=== PATIENT | male | born 1945 ===

== ENCOUNTER 2022-03-17 10:21 | Inpatient (IN) ==
[2022-03-17] MEDS ORDERED: niCARdipine INJ 25 MG in SODIUM CHLORIDE 0.9% 240 ML IV PRN (10:35)
[2022-03-17 10:51] LABS: Red Blood Count 4.79 MC/CUMM (3.8-5.5); White Blood Count 5.4 T/CUMM (4-12)
[2022-03-17 10:52] LABS: Basophils % 0.4 % (0.0-0.8); Eosinophils % 0.7 % (0.00-10.9); Hematocrit 44.5 VOL% (42.0-52.0); Hemoglobin 14.9 GM/DL (14.0-18.0); Immature Granulocytes % 0.2 %; Immature Granulocytes Absolute 0.01 #; Lymphocytes # 2.7 10*3/uL (1.4-4.0); Lymphocytes % 49.1 % (21.2-54.2); Mean Corpuscular HGB Conc 33.5 GM/DL (32-36); Mean Corpuscular Volume 92.9 FL (87-102); Mean Platelet Volume 11.2 FL (9.6-12.0); Monocytes # 0.4 10*3/uL (0.11-0.8); Monocytes % 6.6 % (1.7-12.7); Platelet Count 223 T/CUMM (130-400)
[2022-03-17 11:00] LABS: PT Patient Result 11.2 SECS (10.1-12.1); Partial Thromboplastin Time 28.5 SECS (23.7-32.9)
[2022-03-17] MEDS: SODIUM CHLORIDE 0.9% 1,000 ML IV SCH (11:00)
[2022-03-17 11:13] LABS: Lymphocytes 52 % (20-55); Platelet Estimate Adequate; Total Cells Counted 100
[2022-03-17 11:25] LABS: Bilirubin,Total 0.7 MG/DL (0.20-1.00); Osmolality,Calculated 282.5 MOS/KG (273-304); Potassium 4.5 MMOL/L (3.5-5.1); Total Protein 7.9 G/DL (6.4-8.2)
[2022-03-17] MEDS ORDERED: ONDANSETRON 4 MG/2 ML VIAL IV PRN (12:03)
[2022-03-17] MEDS ORDERED: ALUMINUM/MAGNES/SIMETH MAX STR 30 ML UDCUP PO PRN (12:03)
[2022-03-17] MEDS ORDERED: GLUCAGON 1 MG VIAL IM PRN (12:03)
[2022-03-17] MEDS ORDERED: IBUPROFEN 600 MG TABLET PO PRN (12:09)
[2022-03-17] MEDS ORDERED: amLODIPine 5 MG TABLET PO STA (12:10)
[2022-03-17] MEDS ORDERED: DEXTROSE 10% 250 ML BAG IV PRN (12:11)
[2022-03-17] MEDS ORDERED: ASPIRIN 325 MG TABLET PO STA (12:12)
[2022-03-17 12:50] LABS: Bacteria,Urine Occasional /HPF (Few); Mucus,Urine Occasional /LPF (Occasional); RBC,Urine 1 /HPF (0-4); Squamous Epithelial Cell,Urine Occasional /HPF (0-10)
[2022-03-17 12:52] LABS: Bilirubin,Urine Negative (Negative); Blood, Urine Negative (Negative); Glucose,Urine (UA) 100 mg/dL (Negative); Ketones,Urine Negative (Negative); Nitrite,Urine Negative (Negative); Protein,Urine Negative (Negative); Urine Appearance Clear (Clear); Urine Color Yellow (Yellow); Urine Urobilinogen 0.2 eU/dL (<2.0)
[2022-03-17 12:54] LABS: Barbiturates Screen,Urine Negative (Negative); Benzodiazepines Screen,Urine Negative (Negative); Cannabinoid Screen,Urine Positive (Negative); Opiate Screen,Urine Negative (Negative); Phencyclidine Screen,Urine Negative (Negative)
[2022-03-17] MEDS: ENOXAPARIN 40 MG/0.4 ML SYRINGE SUBCUT SCH (13:14)
[2022-03-17] MEDS: PANTOPRAZOLE 40 MG TABLET PO SCH (13:14)
[2022-03-17] MEDS ORDERED: cloNIDine 0.3 MG/24 HR PATCH TRANSDERM SCH (14:00)
[2022-03-17] MEDS: FUROSEMIDE 20 MG TABLET PO SCH (14:00)
[2022-03-17] MEDS ORDERED: INFLUENZA VIRUS VACCINE 0.5 ML SYRINGE IM ONE (14:39)
[2022-03-17] MEDS: INSULIN LISPRO 100 UNIT/ML SUBCUT SCH ×2 (16:15→20:22)
[2022-03-18] MEDS ORDERED: hydrALAZINE 20 MG/1 ML VIAL IV PRN (02:13)
[2022-03-18] MEDS: ALBUTEROL 2.5 MG/3 ML NEB RESP TX PRN (03:49)
[2022-03-18] MEDS: SODIUM CHLORIDE 0.9% 1,000 ML IV SCH (05:50)
[2022-03-18 06:07] LABS: Basophils % 0.6 % (0.0-0.8); Eosinophils % 0.8 % (0.00-10.9); Hematocrit 43.9 VOL% (42.0-52.0); Hemoglobin 14.7 GM/DL (14.0-18.0); Lymphocytes # 1.9 10*3/uL (1.4-4.0); Lymphocytes % 39.1 % (21.2-54.2); Mean Corpuscular HGB Conc 33.5 GM/DL (32-36); Mean Platelet Volume 11.3 FL (9.6-12.0); Monocytes # 0.4 10*3/uL (0.11-0.8); Monocytes % 8.3 % (1.7-12.7); Neutrophils % 51.2 % (38.7-73.9); Platelet Count 201 T/CUMM (130-400); Red Blood Count 4.77 MC/CUMM (3.8-5.5); Red Cell Distribution Width 12.9 % (9.3-17.3); White Blood Count 4.8 T/CUMM (4-12)
[2022-03-18 06:39] LABS: Osmolality,Calculated 282.7 MOS/KG (273-304); Potassium 3.6 MMOL/L (3.5-5.1); Thyroid Stimulating Hormone 1.3 uIU/ml (0.358-3.74)
[2022-03-18] MEDS: INSULIN LISPRO 100 UNIT/ML SUBCUT SCH ×4 (08:05→20:49)
[2022-03-18] MEDS: ASPIRIN 325 MG TABLET PO SCH (08:06)
[2022-03-18] MEDS: FUROSEMIDE 20 MG TABLET PO SCH (08:06)
[2022-03-18] MEDS: amLODIPine 10 MG TABLET PO SCH (08:07)
[2022-03-18] MEDS: PANTOPRAZOLE 40 MG TABLET PO SCH (08:10)
[2022-03-18] MEDS: ENOXAPARIN 40 MG/0.4 ML SYRINGE SUBCUT SCH (13:32)
[2022-03-19 05:30] LABS: Basophils % 0.6 % (0.0-0.8); Eosinophils # 0.1 10*3/uL (0.0-0.87); Eosinophils % 1.2 % (0.00-10.9); Hematocrit 44.4 VOL% (42.0-52.0); Immature Granulocytes % 0.4 %; Immature Granulocytes Absolute 0.02 #; Lymphocytes # 2.1 10*3/uL (1.4-4.0); Lymphocytes % 42.2 % (21.2-54.2); Mean Corpuscular HGB Conc 33.8 GM/DL (32-36); Mean Corpuscular Volume 92.1 FL (87-102); Mean Platelet Volume 11.2 FL (9.6-12.0); Monocytes # 0.5 10*3/uL (0.11-0.8); Neutrophils % 46.6 % (38.7-73.9); Platelet Count 217 T/CUMM (130-400); Red Blood Count 4.82 MC/CUMM (3.8-5.5)
[2022-03-19 05:46] LABS: Osmolality,Calculated 279.5 MOS/KG (273-304); Potassium 3.5 MMOL/L (3.5-5.1)
[2022-03-19] MEDS: INSULIN LISPRO 100 UNIT/ML SUBCUT SCH ×4 (08:18→20:02)
[2022-03-19] MEDS: FUROSEMIDE 20 MG TABLET PO SCH (09:17)
[2022-03-19] MEDS: ASPIRIN 325 MG TABLET PO SCH (09:17)
[2022-03-19] MEDS: amLODIPine 10 MG TABLET PO SCH (09:17)
[2022-03-19] MEDS: PANTOPRAZOLE 40 MG TABLET PO SCH (09:18)
[2022-03-19] MEDS: ENOXAPARIN 40 MG/0.4 ML SYRINGE SUBCUT SCH (13:40)
[2022-03-19] MEDS: metFORMIN 500 MG TABLET PO SCH (18:00)
[2022-03-19] MEDS: ATORVASTATIN 40 MG TABLET PO SCH (20:24)
[2022-03-19] MEDS: LOSARTAN 25 MG TABLET PO SCH (20:24)
[2022-03-20] MEDS: ALBUTEROL 2.5 MG/3 ML NEB RESP TX PRN (00:56)
[2022-03-20 05:28] LABS: Basophils % 0.6 % (0.0-0.8); Eosinophils # 0.1 10*3/uL (0.0-0.87); Eosinophils % 1.5 % (0.00-10.9); Hematocrit 43.3 VOL% (42.0-52.0); Hemoglobin 14.5 GM/DL (14.0-18.0); Immature Granulocytes % 0.2 %; Immature Granulocytes Absolute 0.01 #; Lymphocytes # 2.8 10*3/uL (1.4-4.0); Lymphocytes % 53.5 % (21.2-54.2); Mean Corpuscular HGB Conc 33.5 GM/DL (32-36); Mean Corpuscular Volume 92.3 FL (87-102); Mean Platelet Volume 11.5 FL (9.6-12.0); Monocytes # 0.3 10*3/uL (0.11-0.8); Monocytes % 6.6 % (1.7-12.7); Neutrophils % 37.6 % (38.7-73.9); Platelet Count 221 T/CUMM (130-400); Red Blood Count 4.69 MC/CUMM (3.8-5.5); White Blood Count 5.2 T/CUMM (4-12)
[2022-03-20 05:53] LABS: Osmolality,Calculated 283.4 MOS/KG (273-304); Potassium 3.7 MMOL/L (3.5-5.1)
[2022-03-20 05:56] LABS: Risk Ratio 2.41; VLDL Cholesterol 13.8 MG/DL
[2022-03-20] MEDS: MAGNESIUM HYDROXIDE SUSP 30 ML UDCUP PO PRN ×2 (06:05→18:26)
[2022-03-20 06:25] LABS: Eosinophils 2 % (0-10); Lymphocytes 57 % (20-55); Platelet Estimate Adequate; Total Cells Counted 100
[2022-03-20] MEDS: INSULIN LISPRO 100 UNIT/ML SUBCUT SCH ×4 (07:49→21:12)
[2022-03-20] MEDS: FUROSEMIDE 20 MG TABLET PO SCH (08:45)
[2022-03-20] MEDS: ASPIRIN 325 MG TABLET PO SCH (08:45)
[2022-03-20] MEDS: PANTOPRAZOLE 40 MG TABLET PO SCH (08:45)
[2022-03-20] MEDS: metFORMIN 500 MG TABLET PO SCH ×2 (08:45→16:21)
[2022-03-20] MEDS: amLODIPine 10 MG TABLET PO SCH (08:46)
[2022-03-20] MEDS: LOSARTAN 25 MG TABLET PO SCH (08:46)
[2022-03-20] MEDS ORDERED: DAPAGLIFLOZIN 5 MG TABLET PO SCH (09:00)
[2022-03-20] MEDS: ENOXAPARIN 40 MG/0.4 ML SYRINGE SUBCUT SCH (14:12)
[2022-03-20] MEDS ORDERED: BISACODYL 5 MG TABLET PO ONE (15:41)
[2022-03-20] MEDS: POLYETHYLENE GLYCOL POWDER 17 GM PACK PO SCH (21:12)
[2022-03-20] MEDS: ATORVASTATIN 40 MG TABLET PO SCH (21:12)
[2022-03-20] MEDS: LOSARTAN 50 MG TABLET PO SCH (21:12)
[2022-03-20] MEDS: DOCUSATE SODIUM 100 MG CAPSULE PO SCH (21:12)
[2022-03-21] MEDS: PANTOPRAZOLE 40 MG TABLET PO SCH (08:54)
[2022-03-21] MEDS: POLYETHYLENE GLYCOL POWDER 17 GM PACK PO SCH (08:54)
[2022-03-21] MEDS: amLODIPine 10 MG TABLET PO SCH (08:54)
[2022-03-21] MEDS: DOCUSATE SODIUM 100 MG CAPSULE PO SCH (08:54)
[2022-03-21] MEDS: LOSARTAN 50 MG TABLET PO SCH (08:55)
[2022-03-21] MEDS: ASPIRIN 325 MG TABLET PO SCH (08:55)
[2022-03-21] MEDS: FUROSEMIDE 20 MG TABLET PO SCH (08:55)
[2022-03-21] MEDS: metFORMIN 500 MG TABLET PO SCH (08:55)
[2022-03-21] MEDS ORDERED: INFLUENZA VIRUS VACCINE 0.5 ML SYRINGE IM ONE (09:00)
[2022-03-21] MEDS ORDERED: DAPAGLIFLOZIN 10 MG TABLET PO SCH (09:00)
[2022-03-21] MEDS: INSULIN LISPRO 100 UNIT/ML SUBCUT SCH ×2 (09:02→11:51)
[2022-03-21 11:20] VITALS: BP 149/86
[2022-03-21] MEDS ORDERED: ATORVASTATIN 20 MG TABLET PO SCH (21:00)
[2022-03-22] MEDS ORDERED: LOSARTAN/HCTZ 50-12.5 MG TABLET PO SCH (09:00)
== END 2022-03-21 12:04 | disposition home or self-care (01) | DRG 65 ==
LOC: N.ED 10:21 → N.ICU 12:03 → SUATTDRO 12:03 → N.ICU 13:38 → N.3E 03-18 15:09
PROVIDERS: ADMIT Internal Medicine; ATTEND Hospitalist